=== PATIENT | female | born 1995 | race Caucasian/White ===

== ENCOUNTER 2018-06-03 17:45 | Emergency (ER) | payer MEDICAID ==
[~2018-06-03] VITALS: Ht 160 cm; Wt 77.1 kg
[2018-06-03 17:48] VITALS: BP_SYST 118
[2018-06-03] MEDS ORDERED: NACL 0.9% 1,000 ML IV ONE (17:53)
--- NOTE | 2018-06-03 17:55 | NUR ---
Patient to ER bed 7 to gown for evaluation. Side rails up. Report given to Skip DURAN.
[2018-06-03] MEDS ORDERED: methylPREDNISolone SOD SUCC/PF 62.5 MG/ML VIAL IVP ONE (18:00)
[2018-06-03] MEDS ORDERED: ALBUTEROL SULFATE 0.083% 2.5 MG/3 ML VIAL.NEB IH ONE (18:00)
[2018-06-03] MEDS ORDERED: IPRATROPIUM BROM 0.5 MG/2.5 ML VIAL.NEB (ATROVENT) IH ONE (18:00)
[2018-06-03] MEDS ORDERED: ONDANSETRON HCL 4 MG/2 ML VIAL IVP ONE (18:00)
[2018-06-03] MEDS ORDERED: MORPHINE 4 MG/ML INJ. SYRINGE IVP ONE (18:00)
--- NOTE | 2018-06-03 18:01 | NUR ---
ER Dr. Trevino at bedside examining patient.
--- NOTE | 2018-06-03 18:05 | NUR ---
Patient to ER via triage with c/o abd pain with constipation x 2 days. Patient denies nausea/vomiting, no unusual foods, no abd tenderness, no cva tenderness, no guarding. Patient able to ambulate to bed 7 with slow, steady gait. Unable to provide urine at this time. Patient reports that she was at [facility] earlier today, but left due to wait. Patient also reports taking ecstasy last night. Patient is awake, alert and oriented in no acute distress, vital signs stable, respirations even and unlabored, skin warm and dry to touch. Patient has been seen and evaluated by Dr Trevino, will continue to observe and assess.
[2018-06-03 18:23] LABS: BASOPHILS # (AUTO) 0.2 K/uL (0.0-0.2); BASOPHILS % (AUTO) 1.8 % (0.0-2.0); EOSINOPHILS # (AUTO) 0.3 K/uL (0.0-0.4); EOSINOPHILS % (AUTO) 2.9 % (0.0-4.0); HEMATOCRIT 42.7 % (36-48); HEMOGLOBIN 14.4 g/dL (12.0-16.0); LYMPHOCYTES # (AUTO) 4.5 K/uL (1.0-5.5); LYMPHOCYTES % (AUTO) 46.2 % (20.5-51.5); MEAN CORPUSCULAR HEMOGLOBIN 30 pg (27-31); MEAN CORPUSCULAR HGB CONC 34 % (32-36); MEAN CORPUSCULAR VOLUME 90 fL (79.0-98.0); MONOCYTES # (AUTO) 0.5 K/uL (0.0-1.0); MONOCYTES % (AUTO) 4.9 % (1.7-9.3); NEUTROPHILS # (AUTO) 4.4 K/uL (1.8-7.7); NEUTROPHILS % (AUTO) 44.2 % (40.0-70.0); PLATELET COUNT (AUTO) 443 K/uL (130-430); RED BLOOD CELL COUNT(AUTO) 4.77 MIL/uL (4.2-6.2); RED CELL DISTRIBUTION WIDTH 13.5 % (9.0-15.0); WHITE BLOOD COUNT (AUTO) 9.9 K/uL (4.8-10.8)
[2018-06-03 18:30] LABS: CALCIUM 9.2 mg/dL (8.4-11.0); CREATININE 0.72 mg/dL (0.55-1.30); POTASSIUM 3.5 mmol/L (3.5-5.1)
[2018-06-03 18:32] LABS: PROTHROMBIN TIME 9.9 SECS (9.5-12.5)
[2018-06-03 18:34] LABS: TOTAL BILIRUBIN 0.6 mg/dL (0.0-1.0)
--- NOTE | 2018-06-03 19:10 | NUR ---
Patient resting quietly in no acute distress, patient reports that pain is worse now, after pain medication. IV fluids complete, no redness or swelling noted at site. [facility]
--- NOTE | 2018-06-03 19:15 | NUR ---
Received report from ROGER Valdivia. All care endorsed.
[2018-06-03 19:29] LABS: BILIRUBIN,URINE NEGATIVE (NEGATIVE); BLOOD, URINE NEGATIVE (NEGATIVE); CLARITY/URINE CLEAR (CLEAR); COLOR,URINE YELLOW (YELLOW); GLUCOSE,URINE NEGATIVE (NEGATIVE); KETONES,URINE NEGATIVE (NEGATIVE); LEUKOCYTE ESTERASE ,URINE NEGATIVE (NEGATIVE); NITRITE, URINE NEGATIVE (NEGATIVE); PH,URINE 5.5 (5.0-8.0); PROTEIN URINE NEGATIVE (NEGATIVE); UROBILINOGEN,URINE 0.2 (0.2-1.0)
[2018-06-03 19:46] LABS: BARBITURATE, URINE NEGATIVE (NEG <=200); BENZODIAZEPINE, URINE NEGATIVE (NEG <=150); CANNABINOID, URINE NEGATIVE (NEG <=50); COCAINE, URINE NEGATIVE (NEG <=150); METHAMPHETAMINES SCREEN,URINE POSITIVE (NEG <=500); OPIATE, URINE POSITIVE (NEG <=100); PHENCYCLIDINE SCREEN,URINE NEGATIVE (NEG <=25); UR TRICYCLIC ANTIDEPRESSANTS NEGATIVE (NEG <=300); URINE AMPHETAMINE POSITIVE (NEG <=500); URINE METHADONE NEGATIVE (NEG <=200); URINE OXYCODONE SCREEN NEGATIVE (NEG <=100); URINE PROPOXYPHENE SCREEN NEGATIVE (NEG <=300)
[2018-06-03] MEDS ORDERED: MINERAL OIL 133 ML ENEMA RC ONE (20:15)
[2018-06-03] MEDS ORDERED: LACTULOSE 20 GM/30 ML UDC PO ONE (20:15)
--- NOTE | 2018-06-03 20:20 | NUR ---
Medications were given, pt tolerated well. No adverse reaction, will continue to monitor.
[2018-06-03] MEDS ORDERED: ONDANSETRON 4 MG ODT TAB ONE (21:21)
[2018-06-03] MEDS ORDERED: ONDANSETRON 4 MG ODT TAB PO ONE (21:30)
--- NOTE | 2018-06-03 21:41 | NUR ---
ER Dr. Juarez at bedside explaining results to patient.
[2018-06-03 21:52] VITALS: BP_SYST 135
--- NOTE | 2018-06-03 21:52 | NUR ---
Patient given written and verbal discharge instructions and verbalizes understanding. ER MD discussed with patient the results and treatment provided. Patient in stable condition. Patient wanted to keep ID band. IV removed, no active bleeding. Rx of lactulose given. Patient educated on pain management and to follow up with PMD. Pain Scale 4. Opportunity for questions provided and answered. Medication side effect fact sheet provided.
[2018-06-06 02:08] LABS: CHLAMYDIA TRACHOMATIS NAA Negative (Negative); NEISSERIA GONORRHOEAE NAA Negative (Negative)
== END 2018-06-03 21:52 | disposition home or self-care (01) ==
LOC: SED 17:45
DX: K59.00 Constipation, unspecified (principal); F15.90 Other stimulant use, unspecified, uncomplicated; F17.210 Nicotine dependence, cigarettes, uncomplicated; I10 Essential (primary) hypertension; Z11.3 Encounter for screening for infections with a predominantly sexual mode of transmission; Z87.19 Personal history of other diseases of the digestive system
CPT/HCPCS: 36415; 74018; 80053; 80307; 81003; 81025; 82150; 83690; 84702; 85025; 85610; 85730; 87491; 87591; 96374; 96375; 99285; J2270; J2405; J7030; Q0162; J2930; J7613

== ENCOUNTER 2021-01-11 01:39 | Emergency (ER) | payer MEDICAID, OTHER ==
[~2021-01-11] VITALS: Ht 160 cm; Wt 72.6 kg
[2021-01-11 02:00] VITALS: BP_SYST 132
[2021-01-11 02:46] VITALS: BP_SYST 112
== END 2021-01-11 02:46 | disposition home or self-care (01) ==
LOC: SED 01:39
DX: F22 Delusional disorders (principal)
CPT/HCPCS: 99284